=== PATIENT | female | born 1990 | race Caucasian/White ===

== ENCOUNTER 2018-05-02 18:24 | Emergency (ER) | payer SELFPAY ==
[~2018-05-02] VITALS: Ht 157.5 cm; Wt 54.4 kg
--- NOTE | 2018-05-02 19:04 | NUR ---
still for MD to evaluate patient, SBAR to ASHLEY Lozoya
--- NOTE | 2018-05-02 19:38 | NUR ---
MD MONTE AT BEDSIDE FOR MSE
[2018-05-02 19:55] LABS: BASOPHILS % (AUTO) 0.6 % (0.0-2.0); EOSINOPHILS % (AUTO) 2.9 % (0.0-7.0); HEMATOCRIT 42.5 % (31.2-41.9); HEMOGLOBIN 14.3 g/dL (10.9-14.3); MEAN CORPUSCULAR HEMOGLOBIN 31.7 uug (24.7-32.8); MEAN CORPUSCULAR HGB CONC 34 g/dL (32.3-35.6); MEAN CORPUSCULAR VOLUME 93.9 fL (75.5-95.3); MONOCYTES % (AUTO) 5.6 % (0.0-11.0); NEUTROPHILS % (AUTO) 62.9 % (38.5-71.5); PLATELET COUNT (AUTO) 293 K/uL (179-408); RED BLOOD CELL COUNT(AUTO) 4.53 MIL/uL (3.63-4.92); WHITE BLOOD COUNT (AUTO) 7.9 K/uL (3.8-11.8)
[2018-05-02 19:56] LABS: EOSINOPHILS # (AUTO) 0.2 K/uL (0.0-0.7); LYMPHOCYTES # (AUTO) 2.2 K/uL (20.0-40.0); MONOCYTES # (AUTO) 0.4 K/uL (2.0-10.0)
[2018-05-02 20:07] LABS: CREATININE 0.7 mg/dL (0.6-1.3); POTASSIUM 5.1 mmol/L (3.5-5.1)
[2018-05-02 20:19] LABS: BILIRUBIN,DIRECT 0.1 mg/dL (0.0-0.2); BILIRUBIN,TOTAL 0.3 mg/dL (0.2-1.0)
--- NOTE | 2018-05-02 20:27 | NUR ---
Patient discharged to home in stable conditon. Written and verbal after care instructions given. Patient verbalizes understanding of instructions. Patient able to ambulate unassisted with a steady gait. Patient left with all personal belongings.
[2018-05-02 20:31] VITALS: BP 118/86
[2018-05-02 20:32] LABS: *BILIRUBIN,URIN NEGATIVE (NEGATIVE); *BLOOD, URINE NEGATIVE (NEGATIVE); *CLARITY,URINE CLEAR (CLEAR); *COLOR,URINE YELLOW (YELLOW); *KETONES,URINE NEGATIVE (NEGATIVE); *PROTEIN,URINE NEGATIVE (NEGATIVE); *UROBILINOGEN,URINE 0.2 E.U./dl (NORMAL); LEUKOCYTE ESTERASE ,URINE NEGATIVE (NEGATIVE); NITRITE, URINE NEGATIVE (NEGATIVE); UGLUCOSE NEGATIVE (NEGATIVE)
[2018-05-02 20:34] LABS: *URINE HCG, QUAL NEGATIVE (NEGATIVE)
[2018-05-02 20:51] LABS: MUCUS,URINE FEW /LPF (0-FEW); SQUAMOUS EPITHELIAL CELL,UR FEW /HPF (NONE SEEN); WBC,URINE 0-3 /HPF (0-3)
== END 2018-05-02 20:27 | disposition home or self-care (01) ==
LOC: ER 18:27
DX: L23.7 Allergic contact dermatitis due to plants, except food (principal); F17.200 Nicotine dependence, unspecified, uncomplicated
CPT/HCPCS: 36415; 80048; 80076; 81001; 84703; 85025; 99284; A4663